=== PATIENT | male | born 1955 | race Caucasian/White ===

== ENCOUNTER 2017-05-02 00:10 | Emergency (ER) | payer OTHER ==
[2017-05-02] MEDS ORDERED: Sodium Chloride 0.9% 10 ML Syringe FLUSH PRN (00:38)
[2017-05-02] MEDS: Ketorolac 30 MG/ML SDV IM ONE (01:02)
[2017-05-02 01:48] LABS: CHLORIDE,CL 100 mmol/L (98-107); SODIUM,NA 136 mmol/L (136-145)
[2017-05-02] MEDS: Take Home: Sulfamethoxazole/Trimethoprim 800-160 MG Tab, 2 Tab Pack PO ONE (02:26)
[2017-05-02] MEDS: oxyCODONE 5 MG Tab ONE (02:27)
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
== END 2017-05-02 02:38 | disposition home or self-care (01) ==
LOC: VM.ED 00:10
DX: N41.9 Inflammatory disease of prostate, unspecified (principal); Z88.5 Allergy status to narcotic agent
CPT/HCPCS: 36415; 80053; 83605; 85025; 86140; 87040; 96372; 99283; A9270; J1885

== ENCOUNTER 2017-05-04 04:47 | Emergency (ER) | payer OTHER ==
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
[2017-05-04] MEDS ORDERED: cefTRIAXone 1 GM Vial IM ONE (05:48)
== END 2017-05-04 06:02 | disposition home or self-care (01) ==
LOC: VM.ED 04:47
DX: N41.0 Acute prostatitis (principal); L03.315 Cellulitis of perineum; N40.1 Benign prostatic hyperplasia with lower urinary tract symptoms; Z88.5 Allergy status to narcotic agent; Z88.8 Allergy status to other drugs, medicaments and biological substances
CPT/HCPCS: 51701; 51798; 81002; 87086; 96372; 99284; J0696

== ENCOUNTER 2017-05-04 23:52 | Observation (INO) | payer OTHER ==
--- NOTE | 2017-05-05 00:09 | EDM.PDOC ---
ED HPI GENERAL MEDICAL PROBLEM - General Chief Complaint: Genitourinary Problem Stated Complaint: urinary retention Time Seen by Provider: 05/04/17 23:55 Source of Information: Reports: Patient, Old Records, RN, RN Notes Reviewed History Limitations: Reports: No Limitations - History of Present Illness INITIAL COMMENTS - FREE TEXT/NARRATIVE: Patient presents to the ED at [facility] with ongoing problems of urinary retention. Patient was seen in this ER 3 days ago with the same problem. He was diagnosed with Acute Prostatitis and started on abx therapy. He return to this ER last evening again with urinary retention. Bladder scan and UA obtained. 650ml residual on scan. Straight cath completed with good relief of symptoms. Patient was given a script for Flomax, but has not started it yet. Patient was seen by his primary today in clinic. Bladder scan was again performed and showed 400ml residual. Patient was told to return if unable to void. Patient was referred to Urology for July 11, 2017. Patient states he has not voided since being seen in the clinic. He is also being treated for what is thought to be a dermatitis around the perineum area. Patient states tonight he now feels like there is a flucuant lump in the perineal area. Otherwise no other concerns. Onset: Today Duration: Getting Worse - Related Data Allergies Allergy/AdvReac Type Severity Reaction Status Date / Time codeine Allergy Stomach Verified 05/04/17 04:50 Upset hydromorphone Allergy Other Verified 05/05/17 00:18 hydroxyzine Allergy Rash Verified 05/04/17 04:56 Home Meds: Home Meds oxyCODONE 5 mg PO Q4HR PRN 1 Days #3 tab 05/02/17 [Rx] Tamsulosin HCl [Flomax] 1 tab PO DAILY 7 Days #7 cap.er.24h 05/04/17 [Rx] Sulfamethoxazole/Trimethoprim [Bactrim Ds Tablet] 1 each PO BID 05/05/17 [ History] Past Medical History - Past Surgical History HEENT Surgical History: Reports: Tonsillectomy GI Surgical History: Reports: Appendectomy Musculoskeletal Surgical History: Reports: Knee Replacement Social & Family History - Tobacco Use Smoking Status *Q: Never Smoker ED ROS GENERAL - Review of Systems Review Of Systems: See Below Constitutional: Denies: Fever, Chills, Weakness Respiratory: Denies: Shortness of Breath, Cough Cardiovascular: Denies: Chest Pain, Palpitations GI/Abdominal: Reports: Nausea. Denies: Abdominal Pain, Vomiting : Reports: Pain, Urinary Retention Skin: Reports: Rash (perineal area/perirectal) Neurological: Denies: Dizziness, Headache ED EXAM, RENAL/ - Physical Exam Exam: See Below Exam Limited By: No Limitations General Appearance: Alert, No Apparent Distress Respiratory/Chest: No Respiratory Distress, Lungs Clear, Normal Breath Sounds Cardiovascular: Normal Peripheral Pulses, Regular Rate, Rhythm GI/Abdominal: Normal Bowel Sounds, Soft, Non-Tender (Male) Exam: Deferred Rectal (Males) Exam: Deferred Neurological: Alert, Oriented Skin Exam: Warm, Dry, Intact, Rash (perineal area extending to perianal and both sides of lower buttocks consistent with dermatitis) Course - Vital Signs Last Recorded V/S: Last Vital Signs Temp 38.1 C 05/04/17 23:54 Pulse 110 H 05/04/17 23:54 Resp 18 05/04/17 23:54 BP 123/67 05/04/17 23:54 Pulse Ox 97 05/04/17 23:54 - Orders/Labs/Meds Orders: Active Orders 24 hr Category Date Time Status Bladder Scan [RC] ONETIME Care 05/05/17 00:26 Ordered Insert Pena Catheter [Insert Urinary Catheter] [OM.PC] Care 05/05/17 00:30 Ordered Stat Urinary Catheter Assessment [RC] ASDIRECTED Care 05/05/17 00:27 Ordered Departure - Departure Time of Disposition: 00:37 Disposition: Refer to Observation Condition: Good Clinical Impression: Acute bacterial prostatitis, Uncontrolled pain, Urinary retention, Dermatitis - Discharge Information - Problem List Review Problem List Initiated/Reviewed/Updated: Yes - My Orders Last 24 Hours: My Active Orders 05/05/17 00:26 Bladder Scan [RC] ONETIME 05/05/17 00:27 Urinary Catheter Assessment [RC] ASDIRECTED 05/05/17 00:30 Insert Pena Catheter [Insert Urinary Catheter] [OM.PC] Stat - Assessment/Plan Admission H&P: Please use this note as an admission H&P Last 24 Hours: My Active Orders 05/05/17 00:26 Bladder Scan [RC] ONETIME 05/05/17 00:27 Urinary Catheter Assessment [RC] ASDIRECTED 05/05/17 00:30 Insert Pena Catheter [Insert Urinary Catheter] [OM.PC] Stat Assessment:: Acute Prostatitis Uncontrolled Pain Perineal Dermatitis Dehydration Urinary Retention Plan: Given this the 3rd visit to the ER for the urinary retention and now having an indwelling catheter, will admit patient to obs for further care. See Admit H&P. Patient agrees with admission and wishes to proceed.
[2017-05-05] MEDS ORDERED: Sodium Chloride 0.9% 10 ML Syringe FLUSH PRN (01:08)
[2017-05-05] MEDS ORDERED: Acetaminophen 325 MG Tab PO PRN (01:15)
[2017-05-05] MEDS ORDERED: Ondansetron 4 MG Tab.DIS PO PRN (01:15)
[2017-05-05] MEDS ORDERED: Polyethylene Glycol 3350 Powder 17 GM Packet PO PRN (01:15)
[2017-05-05] MEDS ORDERED: Magnesium Hydroxide 400 MG/5 ML Susp 30 ML Cup PO PRN (01:15)
[2017-05-05] MEDS ORDERED: Bisacodyl 10 MG Supp RECTAL PRN (01:19)
--- NOTE | 2017-05-05 01:29 | PCM.HP ---
H&P History of Present Illness - General Date of Service: 05/05/17 Admit Problem/Dx: Acute Prostatitis Acute Urinary Retention Dehydration Uncontrolled Pain Perineal Dermatitis Source of Information: Patient, Old Records, RN, RN Notes Reviewed History Limitations: Reports: No Limitations - History of Present Illness Initial Comments - Free Text/Narative: Patient presented to the emergency room at [facility] earlier this evening with a four-day history of urinary retention and lower pelvic pain. The patient was first seen in this ER on May 01, 2017 with the same complaint. The patient was diagnosed with acute prostatitis at that time and started on Bactrim DS. The patient returned to this emergency room last night with the same complaint. A bladder scan was performed the patient had approximately 650mls of urine retention. A To catheter was placed and patient had immediate relief of symptoms. The patient was given 1 g of IM Rocephin and also started on Flomax. The patient was seen today by his PCP in the office who referred him to urology. He had another bladder scan in the office which showed 400 mL of urine. He was advised if he was not able to pass his urine that he was to return for possible To catheter replacement. Upon presentation to this ER earlier tonight. The patient had 750 mL of urine on bladder scan. An indwelling To catheter was placed with good urine return. The patient continued with acute lower abdominal pain despite taking oxycodone. The patient also complained of constipation. The patient's last bowel movement was last Tuesday. The patient is had low-grade temps daily for the past 4 days. He has tried some Tylenol with no relief of the low-grade fevers. The patient did start taking his Flomax earlier this afternoon. Despite currently treatments, the patient does not seem to be getting any better with his symptoms. When seen in the ER last night, the patient had a rash from the perineal area extending to the perianal area that is consistent with an acute dermatitis. Symptom Onset Date: 04/27/17 Duration of Symptoms: Reports: Getting Worse, Waxing/Waning Lower Abdomen Pain Score (Numeric/FACES): 7 - Related Data Allergies/Adverse Reactions: Allergies Allergy/AdvReac Type Severity Reaction Status Date / Time codeine Allergy Stomach Verified 05/04/17 04:50 Upset hydromorphone Allergy Other Verified 05/05/17 00:18 hydroxyzine Allergy Rash Verified 05/04/17 04:56 Home Medications: Home Meds oxyCODONE 5 mg PO Q4HR PRN 1 Days #3 tab 05/02/17 [Rx] Tamsulosin HCl [Flomax] 1 tab PO DAILY 7 Days #7 cap.er.24h 05/04/17 [Rx] Sulfamethoxazole/Trimethoprim [Bactrim Ds Tablet] 1 each PO BID 05/05/17 [ History] Past Medical History Cardiovascular History: Reports: High Cholesterol, Hypertension Musculoskeletal History: Reports: Osteoarthritis Psychiatric History: Reports: Depression Endocrine/Metabolic History: Reports: Obesity/BMI 30+ - Past Surgical History HEENT Surgical History: Reports: Tonsillectomy GI Surgical History: Reports: Appendectomy Musculoskeletal Surgical History: Reports: Knee Replacement Social & Family History - Family History Family Medical History: Noncontributory - Tobacco Use Smoking Status *Q: Former Smoker Tobacco Use Within Last Twelve Months: Cigarettes Second Hand Smoke Exposure: No - Caffeine Use Caffeine Use: Reports: Coffee, Soda - Alcohol Use Alcohol Use History: No Alcohol Use in Last Twelve Months: No - Recreational Drug Use Recreational Drug Use: No - Living Situation & Occupation Living situation: Reports: H&P Review of Systems - Review of Systems: Review Of Systems: See Below General: Reports: Fever. Denies: Chills, Weakness Pulmonary: Denies: Shortness of Breath, Cough Cardiovascular: Denies: Chest Pain, Palpitations Gastrointestinal: Reports: Abdominal Pain. Denies: Nausea, Vomiting Genitourinary: Reports: Pain, Retention Skin: Reports: Erythema (around perineal area) Neurological: Denies: Dizziness, Headache Exam - Exam Exam: See Below - Vital Signs Vital Signs: Last Vital Signs Temp 36.7 C 05/05/17 01:06 Pulse 102 H 05/05/17 01:06 Resp 19 05/05/17 01:06 BP 160/84 H 05/05/17 01:06 Pulse Ox 98 05/05/17 01:06 Weight: 111.493 kg - Exam Quality Assessment: Urinary Catheter, DVT Prophylaxis General: Alert, Oriented, Cooperative Lungs: Clear to Auscultation, Normal Respiratory Effort Cardiovascular: Regular Rate, Regular Rhythm, Normal S1, Normal S2 GI/Abdominal Exam: Soft, Non-Tender, Abnormal Bowel Sounds (Hypoactive) (Male) Exam: Rash (consistent with dermatitis extending from perineal area to perianal area) Peripheral Pulses: 2+: Radial (L), Radial (R) Skin: Warm, Dry, Intact, Rash (perineal dermatitis extending into perianal area) Neuro Extensive - Mental Status: Alert, Oriented x3 *Q Meaningful Use (ADM) - VTE *Q VTE Criteria *Q: No risk for falls - Stroke *Q Stroke Criteria *Q: - AMI *Q AMI Criteria *Q: - Problem List (1) Acute bacterial prostatitis SNOMED Code(s): 23442479 ICD Code: N41.0 - ACUTE PROSTATITIS Status: Acute Priority: Medium Current Visit: Yes Onset Date: ~05/01/17 (2) Urinary retention SNOMED Code(s): 948496136 ICD Code: R33.9 - RETENTION OF URINE, UNSPECIFIED Status: Acute Priority : Medium Current Visit: Yes Onset Date: ~05/01/17 (3) Uncontrolled pain SNOMED Code(s): 04006689697274668 ICD Code: R52 - PAIN, UNSPECIFIED Status: Acute Priority: Medium Current Visit: Yes Onset Date: ~05/01/17 (4) Dermatitis SNOMED Code(s): 18020985 ICD Code: L30.9 - DERMATITIS, UNSPECIFIED Status: Acute Priority: Medium Current Visit: Yes Onset Date: ~05/02/17 (5) Essential hypertension SNOMED Code(s): 60820298 ICD Code: I10 - ESSENTIAL (PRIMARY) HYPERTENSION Status: Chronic Priority : Medium Current Visit: No (6) Hyperlipidemia SNOMED Code(s): 23701949 ICD Code: E78.5 - HYPERLIPIDEMIA, UNSPECIFIED Status: Chronic Current Visit: No Qualifiers: Hyperlipidemia type: mixed hyperlipidemia Qualified Code(s): E78.2 - Mixed hyperlipidemia (7) Depression SNOMED Code(s): 20781707 ICD Code: F32.9 - MAJOR DEPRESSIVE DISORDER, SINGLE EPISODE, UNSPECIFIED Status: Chronic Priority: Medium Current Visit: No Qualifiers: Depression Type: major depressive disorder Major depression recurrence: recurrent Active/Remission status: in remission of unspecified degree Qualified Code(s): F33.40 - Major depressive disorder, recurrent, in remission, unspecified (8) Obesity (BMI 30-39.9) SNOMED Code(s): 068471911 ICD Code: E66.9 - OBESITY, UNSPECIFIED Status: Chronic Current Visit: No Problem List Initiated/Reviewed/Updated: Yes Orders Last 24hrs: Active Orders 24 hr Category Date Time Status Patient Status [ADT] Routine ADT 05/05/17 01:15 Ordered Ambulate [RC] ASDIRECTED Care 05/05/17 01:15 Ordered Antiembolic Devices [RC] PER UNIT ROUTINE Care 05/05/17 01:16 Ordered Height and Weight [RC] UPON Care 05/05/17 01:15 Ordered Intake and Output [RC] QSHIFT Care 05/05/17 01:16 Ordered May Shower [RC] ASDIRECTED Care 05/05/17 01:15 Ordered Oxygen Therapy [RC] PRN Care 05/05/17 01:15 Ordered VTE/DVT Education [RC] PER UNIT ROUTINE Care 05/05/17 01:15 Ordered Vital Signs [RC] Q4H Care 05/05/17 01:15 Ordered Consult to Case Management [CONS] Routine Cons 05/05/17 01:15 Ordered Heart Healthy Diet [DIET] Diet 05/05/17 Breakfast Ordered Abdomen Pelvis w Cont [CT] Routine Exams 05/05/17 08:00 Ordered BASIC METABOLIC PANEL,BMP [CHEM] Routine Lab 05/05/17 05:11 Ordered CBC WITH AUTO DIFF [HEME] Routine Lab 05/05/17 05:11 Ordered CRP [C-REACTIVE PROTEIN] [CHEM] Routine Lab 05/05/17 05:11 Ordered PSA-EIA [REF] Routine Lab 05/05/17 05:11 Ordered SEDIMENTATION RATE AUTO [HEME] Routine Lab 05/05/17 05:11 Ordered UA W/MICROSCOPIC [URIN] Routine Lab 05/05/17 00:45 Ordered Acetaminophen [Tylenol] Med 05/05/17 01:15 Ordered 650 mg PO Q4H PRN Bisacodyl [Dulcolax] Med 05/05/17 01:19 Ordered 10 mg RECTAL BID PRN Ciprofloxacin in D5W [Cipro in D5W 400 MG/200 ML] 400 Med 05/05/17 01:15 Ordered mg Premix Bag 1 bag IV Q12H Magnesium Hydroxide [Milk of Magnesia] Med 05/05/17 01:15 Ordered 30 ml PO Q12H PRN Ondansetron [Zofran ODT] Med 05/05/17 01:15 Ordered 4 mg PO Q6H PRN Polyethylene Glycol 3350 [MiraLAX] Med 05/05/17 01:15 Ordered 17 gm PO DAILY PRN Sodium Chloride 0.9% @ 125 MLS/HR (1000ml) Med 05/05/17 01:15 Ordered Sodium Chloride 0.9% [Normal Saline] 1,000 ml IV ASDIRECTED Sodium Chloride 0.9% [Saline Flush] Med 05/05/17 01:08 Ordered 10 ml FLUSH ASDIRECTED PRN Tamsulosin [Flomax] Med 05/05/17 08:00 Ordered DOSE mg PO DAILY oxyCODONE Med 05/05/17 01:07 Ordered 5 mg PO Q4HR PRN Antiembolic Hose [OM.PC] Per Unit Routine Oth 05/05/17 01:16 Ordered Peripheral IV Insertion Adult [OM.PC] Routine Oth 05/05/17 01:08 Ordered Resuscitation Status Routine Resus Stat 05/05/17 01:15 Ordered Medication Orders Acetaminophen (Tylenol) 650 mg PO Q4H PRN PRN Reason: Pain (Mild 1-3)/fever Bisacodyl (Dulcolax) 10 mg RECTAL BID PRN PRN Reason: Constipation Ciprofloxacin/Dextrose 400 mg/ (Premix) 200 mls @ 200 mls/hr IV Q12H JENY Sodium Chloride (Normal Saline) 1,000 mls @ 125 mls/hr IV ASDIRECTED JENY Magnesium Hydroxide (Milk Of Magnesia) 30 ml PO Q12H PRN PRN Reason: Constipation Ondansetron HCl (Zofran Odt) 4 mg PO Q6H PRN PRN Reason: nausea, able to take PO Oxycodone HCl (Oxycodone) 5 mg PO Q4HR PRN PRN Reason: Pain Polyethylene Glycol (Miralax) 17 gm PO DAILY PRN PRN Reason: Constipation Sodium Chloride (Saline Flush) 10 ml FLUSH ASDIRECTED PRN PRN Reason: Keep Vein Open Tamsulosin HCl (Flomax) 0.4 mg PO DAILY [facility] Assessment/Plan Comment:: 61-year-old male patient with a past medical history of essential hypertension, hyperlipidemia, depression, and obesity is admitted to the observation unit at [facility] for diagnosis of acute bacterial prostatitis, acute urinary retention, uncontrolled pain, dermatitis, and dehydration. 1. Acute bacterial prostatitis - stop Bactrim and start IV Cipro; IVF hydration ; insert indwelling to catheter; PSA level 2. Acute Urinary Retention - indwelling to; check PSA; CT of Abd/Pelvis to rule out abscess 3. Uncontrolled Pain - continue with Oxycodone for now 4. Dehydration - IVF hydration and encourage PO fluids 5. Dermatitis - IV abx; start Triamcinolone cream BID; monitor closely for resolution Patient is a full code. Patient does wish to be transferred to a higher level of care should the need arise. DVT prophylaxis early ambulation, no risk of VTE. Will start Cipro IV for persistent fevers, prostatitis, and dermatitis; hold Bactrim. Will send for a PSA level. Check inflammatory markers. Will recheck UA. Urine culture results are pending at time of this dictation. I do anticipate an observation stay <48 hours. Will obtain a CT scan with contrast of the Abd/pelvis to rule out any abscess and to further eval the prostate.
[2017-05-05] MEDS: Sodium Chloride 0.9% 1,000 ML IV SCH ×2 (02:00→11:26)
[2017-05-05] MEDS: Ciprofloxacin in D5W 400 MG in Premix Bag 1 BAG IV SCH ×4 (02:02→12:38)
[2017-05-05 07:17] LABS: CHLORIDE,CL 100 mmol/L (98-107); SODIUM,NA 134 mmol/L (136-145)
[2017-05-05] MEDS ORDERED: Tamsulosin 0.4 MG Cap.ER PO SCH (08:00)
[2017-05-05] MEDS ORDERED: Iopamidol 612 MG/ML 100 ML Bottle IVPUSH ONE (08:10)
[2017-05-05] MEDS: oxyCODONE 5 MG Tab PO PRN ×2 (08:39→12:38)
[2017-05-05] MEDS ORDERED: Doxycycline 100 MG Cap PO SCH (09:30)
[2017-05-05] MEDS ORDERED: metroNIDAZOLE/Normal Saline 500 MG in Premix Bag 1 BAG IV ONE (12:20)
--- NOTE | 2017-05-05 12:29 | PCM.DCSUM1 ---
Discharge Summary - Hospital Course Free Text/Narrative:: Pt. presented to ER last evening with rectal/perineal pain and difficulty voiding. Pt. was seen in ER on 05/02/17 and 05/04/17, as well as being seen in ER. Pt. was subsequently admitted to [facility] surg this AM and he underwent contrast CT of abdomen and pelvis. This study showed thickening of the rectal wall and anus , consistent with proctitis vs. malignancy. Pt. is currently on Cipro and Doxycycline was added, pending GC/Chlamydia results. After obtaining CT results , [facility] colorectal surgeon Dr. Spear was contacted. He advised starting the pt. on Flagyl in addition to the other antibiotics and transferring him to [facility] for flex sigmoidoscopy/direct visualization of bowel. - Discharge Data Discharge Date: 05/05/17 Discharge Disposition: DC/Tfer to Acute Hospital 02 Condition: Serious - Discharge Diagnosis/Problem(s) (1) Proctitis SNOMED Code(s): 8866304 ICD Code: K62.89 - OTHER SPECIFIED DISEASES OF ANUS AND RECTUM Status: Acute Current Visit: Yes - Discharge Plan Home Medications: Home Meds oxyCODONE 5 mg PO Q4HR PRN 1 Days #3 tab 05/02/17 [Rx] Tamsulosin HCl [Flomax] 1 tab PO DAILY 7 Days #7 cap.er.24h 05/04/17 [Rx] Sulfamethoxazole/Trimethoprim [Bactrim Ds Tablet] 1 each PO BID 05/05/17 [ History] Forms: Interfacility Transfer EMTALA Referrals: PCP,Unobtain [Primary Care Provider] - - Discharge Summary/Plan Comment Discharge Summary/Plan Comment: Cipro 400mg IV BID Metronidazole 500mg IV TID Doxycycline 100mg PO BID Will transfer pt. to [facility] via [facility]. - Patient Data Vitals - Most Recent: Last Vital Signs Temp 37.7 C 05/05/17 10:00 Pulse 71 05/05/17 10:00 Resp 16 05/05/17 10:00 BP 108/55 L 05/05/17 10:00 Pulse Ox 92 L 05/05/17 10:00 Weight - Most Recent: 111.493 kg I&O - Last 24 hours: Intake & Output 05/04/17 05/05/17 05/05/17 22:59 06:59 14:59 Intake Total 878 280 Output Total 400 675 Balance 478 -395 Lab Results - Last 24 hrs: Laboratory Results - last 24 hr 18 05/05/17 Range/Units 06:33 06:33 WBC 16.2 H (4.0-10.0) x10^3/uL RBC 4.12 L (4.5-6.0) x10^6/uL Hgb 12.9 L D (14.0-18.0) g/dL Hct 37.6 L (40.0-52.0) % MCV 91.3 (78.0-93.0) fL MCH 31.3 (26.0-32.0) pg MCHC 34.3 (32.0-36.0) g/dL RDW Coeff of Alec 13.5 (10.0-15.0) % Plt Count 264 (130-400) x10^3/uL Neut % (Auto) 76.1 (50.0-80.0) % Lymph % (Auto) 11.2 L (25.0-50.0) % Ripley % (Auto) 12.4 H (2.0-11.0) % Eos % (Auto) 0.2 (0.0-4.0) % Baso % (Auto) 0.1 L (0.2-1.2) % ESR 91 H (0-16) mm/hr Sodium 134 L (136-145) mmol/L Potassium 3.1 L (3.5-5.1) mmol/L Chloride 100 (98-107) mmol/L Carbon Dioxide 25 (21-32) mmol/L BUN 13 (7-18) mg/dL Creatinine 1.0 (0.70-1.30) mg/dL Est Cr Clr Drug Dosing 78.07 mL/min Estimated GFR (MDRD) > 60 Glucose 105 (74-106) mg/dL Calcium 8.7 (8.5-10.1) mg/dL Corrected Calcium 9.66 (8.5-10.1) mg/dL Total Bilirubin 1.0 (0.2-1.0) mg/dL AST 25 (15-37) U/L ALT 31 (16-63) U/L Alkaline Phosphatase 74 (46-116) U/L C-Reactive Protein 26.7 H (<=0.9) mg/dL Total Protein 7.1 (6.4-8.2) g/dL Albumin 2.8 L (3.4-5.0) g/dL Globulin 4.3 Albumin/Globulin Ratio 0.65 Med Orders - Current: Current Medications Acetaminophen (Tylenol) 650 mg PO Q4H PRN PRN Reason: Pain (Mild 1-3)/fever Bisacodyl (Dulcolax) 10 mg RECTAL BID PRN PRN Reason: Constipation Doxycycline Hyclate (Vibramycin) 100 mg PO BID [facility] Last Admin: 05/05/17 09:42 Dose: 100 mg Ciprofloxacin/Dextrose 400 mg/ (Premix) 200 mls @ 200 mls/hr IV Q12H [facility] Last Admin: 05/05/17 02:02 Dose: 200 mls/hr Sodium Chloride (Normal Saline) 1,000 mls @ 125 mls/hr IV ASDIRECTED [facility] Last Admin: 05/05/17 11:26 Dose: 125 mls/hr Metronidazole 500 mg/ Premix 100 mls @ 100 mls/hr IV ONETIME ONE Stop: 05/05/17 13:19 Magnesium Hydroxide (Milk Of Magnesia) 30 ml PO Q12H PRN PRN Reason: Constipation Ondansetron HCl (Zofran Odt) 4 mg PO Q6H PRN PRN Reason: nausea, able to take PO Oxycodone HCl (Oxycodone) 5 mg PO Q4HR PRN PRN Reason: Pain Last Admin: 05/05/17 08:39 Dose: 5 mg Polyethylene Glycol (Miralax) 17 gm PO DAILY PRN PRN Reason: Constipation Sodium Chloride (Saline Flush) 10 ml FLUSH ASDIRECTED PRN PRN Reason: Keep Vein Open Tamsulosin HCl (Flomax) 0.4 mg PO DAILY [facility] Last Admin: 05/05/17 08:37 Dose: 0.4 mg Discontinued Medications Iopamidol (Isovue-300 (61%)) 100 ml IVPUSH ONETIME ONE Stop: 05/05/17 08:11 Last Admin: 05/05/17 08:30 Dose: 100 ml *Q Meaningful Use (DIS) - VTE *Q VTE Criteria *Q: - Stroke *Q Stroke Criteria *Q: - AMI *Q AMI Criteria *Q:
== END 2017-05-05 13:50 | disposition short-term general hospital (02) ==
LOC: VM.ED 23:52 → UNDOADMOB 05-05 00:36 → VM.MS 05-05 00:36
PROVIDERS: ADMIT Nurse Practitioner Family; ATTEND Nurse Practitioner Family
DX: K62.89 Other specified diseases of anus and rectum (principal); I10 Essential (primary) hypertension; E78.00 Pure hypercholesterolemia, unspecified; F32.9 Major depressive disorder, single episode, unspecified; E66.9 Obesity, unspecified; Z68.30 Body mass index [BMI] 30.0-30.9, adult; Z90.49 Acquired absence of other specified parts of digestive tract; Z79.899 Other long term (current) drug therapy; Z88.8 Allergy status to other drugs, medicaments and biological substances; Z98.890 Other specified postprocedural states; Z87.891 Personal history of nicotine dependence; Z96.659 Presence of unspecified artificial knee joint
CPT/HCPCS: 36415; 51702; 51798; 74177; 80053; 81001; 84153; 85025; 85652; 86140; 96361; 96365; 96375; 96376; 99285; A9270; G0378; J0744; J7030; Q9967; 87491; 87591